=== PATIENT | male | born 1955 | race Caucasian/White ===

== ENCOUNTER → 2021-06-06 | Emergency (ER) | payer OTHER, MEDICARE ==
[~2021-06-06] VITALS: Ht 180.3 cm; Wt 100.0 kg
[~2021-06-06] MED LIST: FLO0.4C PO; HYDR-3972 PO; HYDROcodone/acetaminophen 10/325mg tab PO ONE; ONDA4TAB6 PO; morphine 4 MG/ML inj SYRINge IV PRN; normal saline 1000ML IV soln IVB ONE; ondansetron/PF 4mg/2ml inj IV ONE
[2021-06-06 04:30] LABS: BASOPHILS # (AUTO) 0.1 X10'3 (0-0.2); BASOPHILS % (AUTO) 0.6 % (0-1); EOSINOPHILS # (AUTO) 0.1 X10'3 (0-0.9); EOSINOPHILS % (AUTO) 0.8 % (0-6); HEMATOCRIT 48.4 % (42.0-52.0); HEMOGLOBIN 15.9 g/dl (14.0-17.9); LYMPHOCYTES # (AUTO) 1.5 X10'3 (1.1-4.8); LYMPHOCYTES % (AUTO) 10.5 % (21-51); MEAN CORPUSCULAR HEMOGLOBIN 33.4 PG (27.0-31.0); MEAN CORPUSCULAR HGB CONC 32.8 g/dL (33.0-36.5); MEAN PLATELET VOLUME 9.4 FL (7.4-10.4); MONOCYTES # (AUTO) 1.1 X10'3 (0-0.9); MONOCYTES % (AUTO) 7.5 % (2-12); NEUTROPHILS # (AUTO) 11.6 X10'3 (1.8-7.7); NEUTROPHILS % (AUTO) 80.6 % (42-75); PLATELET COUNT 197 X10'3 (140-440); RED BLOOD COUNT 4.75 X10'6 (4.70-6.10); RED CELL DISTRIBUTION WIDTH 13.6 % (11.5-14.5); WHITE BLOOD COUNT 14.3 X10'3 (4.5-11.0)
[2021-06-06 04:31] LABS: CLARITY,URINE CLEAR (Clear); COLOR,URINE YELLOW (Yellow); GLUCOSE, URINE NEGATIVE (Neg); KETONES,URINE NEGATIVE (Neg); LEUKOCYTE ESTERASE ,URINE NEGATIVE (Neg); NITRITES, URINE NEGATIVE (Neg); OCCULT BLOOD,URINE LARGE (Neg); PROTEIN,URINE >=300 mg/dl (Neg)
[2021-06-06 04:36] LABS: UA COLLECTION TYPE CLN CATCH MIDSTREAM
[2021-06-06 04:40] LABS: BACTERIA,URINE NONE SEEN /HPF (Neg); SQUAMOUS EPITHELIAL CELL,UR NONE SEEN /LPF (FEW); WBC,URINE 0-4 /HPF (0-4)
[2021-06-06 04:47] LABS: ALANINE AMINOTRANSFERASE 40 U/L (12-78); ALBUMIN/GLOBULIN RATIO 1.1 (1.1-1.5); ALKALINE PHOSPHATASE 77 IU/L (46-116); ANION GAP 12 (8-16); ASPARTATE AMINO TRANSFERASE 28 U/L (10-37); BILIRUBIN,TOTAL 0.7 MG/DL (0.1-1.0); BLOOD UREA NITROGEN 18 MG/DL (7-18); BUN/CREATININE RATIO 12.9 (5.4-32.0); CALCIUM 8.5 MG/DL (8.5-10.1); CHLORIDE 107 MMOL/L (99-107); GLUCOSE 115 MG/DL (70-104); LIPASE < 50 U/L (73-393); POTASSIUM 3.6 MMOL/L (3.5-5.1); SODIUM 144 MMOL/L (135-145); TOTAL CARBON DIOXIDE 24.6 MMOL/L (24-32); TOTAL PROTEIN 7.5 G/DL (6.4-8.2); eGFR 50 ML/MIN
--- NOTE | 2021-06-06 05:19 | NUR ---
attempted to bladder scan pt. was unable to obtain an amount. rn radha attempted as well as rn daisha to no avail.
[2021-06-06 05:58] VITALS: BP 170/104
== END | disposition home or self-care (01) ==
LOC: ER 04:03
DX: N20.2 Calculus of kidney with calculus of ureter (principal); F12.90 Cannabis use, unspecified, uncomplicated; Z87.442 Personal history of urinary calculi; Z72.89 Other problems related to lifestyle; Z79.899 Other long term (current) drug therapy
CPT/HCPCS: 36415; 74176; 80053; 81001; 83690; 85025; 96361; 96374; 96375; 99284; J2270; J2405; J7030

== ENCOUNTER 2021-09-11 16:03 | Emergency (ER) | payer OTHER, MEDICARE ==
[~2021-09-11] VITALS: Ht 180.3 cm; Wt 81.8 kg
[~2021-09-11 16:03] MED LIST changes: -FLO0.4C PO; -HYDR-3972 PO; -HYDROcodone/acetaminophen 10/325mg tab PO ONE; -morphine 4 MG/ML inj SYRINge IV PRN; -normal saline 1000ML IV soln IVB ONE; -ondansetron/PF 4mg/2ml inj IV ONE
[2021-09-11 16:35] VITALS: BP 121/83
[2021-09-11 17:21] LABS: BASOPHILS % (AUTO) 0.3 % (0-1); EOSINOPHILS % (AUTO) 0 % (0-6); HEMATOCRIT 51.8 % (42.0-52.0); HEMOGLOBIN 17.5 g/dl (14.0-17.9); LYMPHOCYTES # (AUTO) 0.5 X10'3 (1.1-4.8); LYMPHOCYTES % (AUTO) 11.1 % (21-51); MEAN CORPUSCULAR HEMOGLOBIN 33.8 PG (27.0-31.0); MEAN CORPUSCULAR HGB CONC 33.8 g/dL (33.0-36.5); MEAN CORPUSCULAR VOLUME 100.1 FL (78-98); MONOCYTES # (AUTO) 0.5 X10'3 (0-0.9); NEUTROPHILS # (AUTO) 3.6 X10'3 (1.8-7.7); NEUTROPHILS % (AUTO) 78.6 % (42-75); PLATELET COUNT 107 X10'3 (140-440); RED BLOOD COUNT 5.17 X10'6 (4.70-6.10); RED CELL DISTRIBUTION WIDTH 13.4 % (11.5-14.5); WHITE BLOOD COUNT 4.5 X10'3 (4.5-11.0)
[2021-09-11 17:29] LABS: ALANINE AMINOTRANSFERASE 38 U/L (12-78); ALBUMIN 3.7 G/DL (3.4-5.0); ALBUMIN/GLOBULIN RATIO 0.8 (1.1-1.5); ALKALINE PHOSPHATASE 81 IU/L (46-116); ANION GAP 13 (8-16); ASPARTATE AMINO TRANSFERASE 33 U/L (10-37); BILIRUBIN,TOTAL 0.8 MG/DL (0.1-1.0); BLOOD UREA NITROGEN 24 MG/DL (7-18); BUN/CREATININE RATIO 13.8 (5.4-32.0); C-REACTIVE PROTEIN 4.73 MG/DL (0.0-0.5); CHLORIDE 101 MMOL/L (99-107); CREATININE 1.74 MG/DL (0.60-1.10); GLUCOSE 113 MG/DL (70-104); POTASSIUM 4.2 MMOL/L (3.5-5.1); SODIUM 138 MMOL/L (135-145); TOTAL CARBON DIOXIDE 24.5 MMOL/L (24-32); TOTAL PROTEIN 8.2 G/DL (6.4-8.2); eGFR 39 ML/MIN
[2021-09-11] MEDS ORDERED: CASIRIVIMAB/IMDEVIMAB inject. 10 ML in normal saline 100ml IV soln 100 ML IV ONE (17:45)
[2021-09-11] MEDS ORDERED: BUDE180A INH (18:14)
[2021-09-11] MEDS ORDERED: DEXA6TAB6 PO (18:14)
[2021-09-11] MEDS ORDERED: AZIT500T PO (18:14)
[2021-09-11] MEDS ORDERED: ALBU6.7H9 INH (18:14)
== END 2021-09-11 19:54 | disposition home or self-care (01) ==
LOC: ER 16:04
DX: U07.1 COVID-19 (principal); J18.9 Pneumonia, unspecified organism; F12.90 Cannabis use, unspecified, uncomplicated; F15.90 Other stimulant use, unspecified, uncomplicated; F17.200 Nicotine dependence, unspecified, uncomplicated; G89.29 Other chronic pain; K21.9 Gastro-esophageal reflux disease without esophagitis; M19.90 Unspecified osteoarthritis, unspecified site; Z79.2 Long term (current) use of antibiotics; Z79.899 Other long term (current) drug therapy
CPT/HCPCS: 36415; 71045; 80053; 84145; 85025; 86140; 87635; 99284; C9803; M0243; Q0244

== ENCOUNTER 2022-02-19 02:08 | Emergency (ER) | payer OTHER, MEDICARE ==
[~2022-02-19] VITALS: Ht 154.9 cm; Wt 109.1 kg
[~2022-02-19 02:08] MED LIST changes: +ALBU6.7H9 INH; +BUDE180A INH; +DEXA6TAB6 PO
[2022-02-19] MEDS ORDERED: ibuprofen 200mg tablet PO ONE (03:35)
[2022-02-19 03:46] VITALS: BP 138/82
== END 2022-02-19 03:47 | disposition home or self-care (01) ==
LOC: ER 02:09
DX: G56.20 Lesion of ulnar nerve, unspecified upper limb (principal); R20.0 Anesthesia of skin; K21.9 Gastro-esophageal reflux disease without esophagitis; M19.90 Unspecified osteoarthritis, unspecified site; G89.29 Other chronic pain; F12.90 Cannabis use, unspecified, uncomplicated; F15.90 Other stimulant use, unspecified, uncomplicated; Z72.89 Other problems related to lifestyle; Z79.899 Other long term (current) drug therapy
CPT/HCPCS: 99282